=== PATIENT | female | born 1990 | race Hispanic/Latino ===

== ENCOUNTER 2018-07-14 20:33 | Emergency (ER) | payer BC ==
[2018-07-14 20:33] VITALS: BMI 23.1
[2018-07-14 20:44] VITALS: RESP 18
[2018-07-14] MEDS ORDERED: Sodium Chloride 0.9% 1,000 ML IV STA (21:10)
[2018-07-14 21:31] LABS: PH,URINE 6.5 (4.7-8.0); URINE BILIRUBIN NEGATIVE (NEGATIVE); URINE BLOOD SMALL (NEGATIVE); URINE GLUCOSE (UA) 100 mg/dL (NEGATIVE); URINE LEUKOCYTE ESTERASE TRACE Leu/uL (NEGATIVE); URINE PROTEIN NEGATIVE mg/dL (<30 mg/dL); URINE UROBILINOGEN 0.2 E.U./dL (<1 E.U./dL)
[2018-07-14 21:32] LABS: URINE APPEARANCE CLEAR (CLEAR); URINE COLOR YELLOW (YELLOW)
[2018-07-14 21:41] LABS: URINE AMORPHOUS SEDIMENT SMALL /hpf; URINE BACTERIA TRACE /hpf; URINE RBC 15 - 20 /hpf (0-2)
[2018-07-14] MEDS ORDERED: cefTRIAXone 1 gm 1 GM/100 ML BAG IVPB STA (21:42)
--- NOTE | 2018-07-14 22:25 | ED PDOC ---
Arrival/HPI - General Chief Complaint: Abdominal Pain Time Seen by Provider: 07/14/18 20:45 Historian: Patient - History of Present Illness Narrative History of Present Illness (Text): 07/14/18 21:54 27 yo F complains of abdominal pain described, associated with nausea, vomiting x1, diarrhea x1, and urinary urgency since this morning. States that she ate at a restaurant yesterday and had an alcoholic drink as well. Otherwise: (-) fever, (-) chills, (-) diarrhea, (-) back pain, (-) dysuria, (-) fever, (-) melena, (-) hematochezia. Has no history of prior abdominal surgery. Past Medical History - Infectious Disease Hx of Infectious Diseases: None - Past Medical History Past Medical History: Non-Contributing - Cardiac Hx Cardiac Disorders: No - Pulmonary Hx Respiratory Disorders: No - Neurological Hx Neurological Disorder: No - HEENT Hx HEENT Disorder: No - Renal Hx Renal Disorder: No - Hematological/Oncological Other/Comment: Sjogren's disease - Integumentary Hx Dermatological Disorder: No - Musculoskeletal/Rheumatological Hx Musculoskeletal Disorders: No - Gastrointestinal Hx Gastrointestinal Disorders: No - Genitourinary/Gynecological Hx Genitourinary Disorders: No - Psychiatric Hx Depression: No Hx Emotional Abuse: No Hx Physical Abuse: No Hx Substance Use: No - Past Surgical History Past Surgical History: No Previous - Anesthesia Hx Anesthesia: No - Suicidal Assessment Feels Threatened In Home Enviroment: No Family/Social History Family/Social History: No Known Family HX Smoking Status: Never Smoked Hx Alcohol Use: Yes Frequency of alcohol use: Socially Hx Substance Use: No Hx Substance Use Treatment: No Allergies/Home Meds Allergies/Adverse Reactions: Allergies No Known Allergies Allergy (Verified 04/11/15 01:01) Home Medications: Home Meds Medication Instructions Recorded Confirmed Hydroxychloroquine Sulfate 200 mg PO DAILY 02/24/12 07/14/18 [Plaquenil] Norethindrone-E.estradiol-Iron [Lo 1 tab PO DAILY 11/17/12 07/14/18 Loestrin Fe 10 Mcg-75 mg-1 mg] Review of Systems - Review of Systems Constitutional: absent: Fatigue, Fevers Respiratory: absent: SOB, Cough Cardiovascular: absent: Chest Pain, Palpitations Gastrointestinal: Abdominal Pain, Diarrhea, Nausea, Vomiting Genitourinary Female: Frequency. absent: Dysuria, Hematuria Musculoskeletal: absent: Arthralgias, Back Pain, Neck Pain Skin: absent: Rash, Pruritis, Skin Lesions Physical Exam Vital Signs Temp Pulse Resp BP Pulse Ox 07/14/18 20:43 98.1 F 111 H 18 127/83 96 Temperature: Afebrile Blood Pressure: Normal Pulse: Tachycardic Respiratory Rate: Normal Appearance: Positive for: Well-Appearing, Non-Toxic, Comfortable Pain Distress: None Mental Status: Positive for: Alert and Oriented X 3 - Systems Exam Head: Present: Atraumatic, Normocephalic Pupils: Present: PERRL Extroacular Muscles: Present: EOMI Conjunctiva: Present: Normal Mouth: Present: Dry Neck: Present: Normal Range of Motion Respiratory/Chest: Present: Clear to Auscultation, Good Air Exchange. No: Respiratory Distress, Accessory Muscle Use Cardiovascular: Present: Regular Rate and Rhythm, Normal S1, S2. No: Murmurs Abdomen: No: Tenderness, Distention, Peritoneal Signs Back: Present: Normal Inspection Upper Extremity: Present: Normal Inspection. No: Cyanosis, Edema Lower Extremity: Present: Normal Inspection. No: Edema Neurological: Present: GCS=15, CN II-XII Intact, Speech Normal Skin: Present: Warm, Dry, Normal Color. No: Rashes Psychiatric: Present: Alert, Oriented x 3, Normal Insight, Normal Concentration Medical Decision Making ED Course and Treatment: 07/14/18 23:36 Plan: -- Labs -- IV fluids -- Urinalysis -- Pepcid / Zofran -- Reassess and disposition labs reviewed, rocephin 1 g IV ordered to treat UTI. On reevaluation, patient reports improvement of symptoms, denies any abdominal pain or nausea. On exam, patient remains awake alert and oriented 3 in no acute distress. Patient able to tolerate po fluids. Diagnostic results and diagnosis discussed with the patient. Patient states that she was treated for a UTI 5 weeks ago at [facility] and took and completed macrobid. She has documents from her visit at [facility] showing her urine cx + E coli sensitive to bactrim and macrobid. Advised to follow up with primary care physician in 1-2 days without fail. Advised to take medication as prescribed. Return to the emergency room at any time for any new or worsening symptoms. Patient states she fully agrees with and understands discharge instructions. States that she agrees with the plan and disposition. Verbalized and repeated discharge instructions and plan. I have given the patient opportunity to ask any additional questions. - Lab Interpretations Lab Results: Urine Color Yellow (YELLOW) 07/14/18 21: Urine Appearance Clear (CLEAR) 07/14/18 21: Urine pH 6.5 (4.7-8.0) 07/14/18 21: Ur Specific [place] 1.015 (1.005-1.035) 07/14/18 21: Urine Protein Negative mg/dL (<30 mg/dL) 07/14/18 21: Urine Glucose (UA) 100 mg/dL (NEGATIVE) H 07/14/18 21: Urine Ketones Negative mg/dL (NEGATIVE) 07/14/18 21: Urine Blood Small (NEGATIVE) H 07/14/18 21: Urine Nitrate Positive (NEGATIVE) H 07/14/18 21: Urine Bilirubin Negative (NEGATIVE) 07/14/18 21: Urine Urobilinogen 0.2 E.U./dL (<1 E.U./dL) 07/14/18 21:19 Ur Leukocyte Esterase Trace Bella/uL (NEGATIVE) H 07/14/18 21:19 Urine RBC 15 - 20 /hpf (0-2) H 07/14/18 21:19 Urine WBC 10 - 15 /hpf (0-6) H 07/14/18 21:19 Ur Epithelial Cells 6 - 8 /hpf (0-5) H 07/14/18 21:19 Amorphous Sediment Small /hpf (NONE) 07/14/18 21: Urine Bacteria Trace /hpf (NONE) 07/14/18 21:19 - Medication Orders Current Medication Orders: Sodium Chloride (Sodium Chloride 0.9%) 1,000 mls @ 1,000 mls/hr IV .Q1H STA Stop: 07/14/18 22:09 Ceftriaxone Sodium (Rocephin 1 Gram Ivpb) 1 gm in 100 mls @ 200 mls/hr IVPB STAT STA; Protocol Stop: 07/14/18 22:11 Discontinued Medications Famotidine (Pepcid) 20 mg IVP STAT STA Stop: 07/14/18 21:11 Ondansetron HCl (Zofran Inj) 4 mg IVP STAT STA Stop: 07/14/18 21:11 - PA / PRACTICE LEAD / Resident Statement / has reviewed & agrees with the documentation as recorded. Disposition/Present on Arrival - Present on Arrival Any Indicators Present on Arrival: No History of DVT/PE: No History of Uncontrolled Diabetes: No Urinary Catheter: No History of Decub. Ulcer: No History Surgical Site Infection Following: None - Disposition Have Diagnosis and Disposition been Completed?: Yes Diagnosis: Abdominal pain, UTI (urinary tract infection), Nausea & vomiting Disposition: HOME/ ROUTINE Disposition Time: 23:30 Patient Plan: Discharge Condition: STABLE Discharge Instructions (ExitCare): Urinary Tract Infections in Adults, Acute Abdomen (Belly Pain), Nausea and Vomiting, Adult Additional Instructions: Thank you for letting us take care of you today. You were treated for abdominal pain, vomiting, UTI. The emergency medical care you received today was directed at your acute symptoms. If you were prescribed any medication, please fill it and take as directed. It may take several days for your symptoms to resolve. Return to the Emergency Department if your symptoms worsen, do not improve, or if you have any other problems. Please contact your doctor in 2 days for re-evaluation and follow up. Bring any paperwork you were given at discharge with you along with any medications you are taking to your follow up visit. Our treatment cannot replace ongoing medical care by a primary care provider (PCP) outside of the emergency department. Thank you for allowing the [facility] team to be part of your care today. If you had a urine culture: It will take several days for the results, if any change in treatment is needed we will contact you. Prescriptions: Ondansetron ODT [Zofran ODT] 4 mg PO DAILY PRN #20 odt PRN Reason: Nausea/Vomiting Sulfamethoxazole/Trimethoprim [Bactrim DS 800 mg-160 mg] 1 tab PO BID #14 tab Referrals: Amita Gustafson DO [Primary Care Provider] - Follow up with primary Forms: [employer] (Spanish), WORK NOTE
[2018-07-14 22:49] VITALS: BP 118/77
[2018-07-14 22:59] LABS: EOS % 0.7 % (1.5-5.0); GRAN # 4.1 (1.4-6.5); GRAN % 74.7 % (50.0-68.0); HEMOGLOBIN 14.2 g/dL (12.0-16.0); LYMPH # 1.1 (1.2-3.4); LYMPH % 19.7 % (22.0-35.0); MEAN CELL VOLUME 85.9 fl (80.0-105.0); MEAN CORPUSCULAR HGB CONC 34.9 g/dl (31.0-37.0); MEAN PLATELET VOLUME 10.8 fl (7.0-11.0); MONO # 0.3 (0.1-0.6); MONO % 4.9 % (1.0-6.0); RBC 4.74 10^6/uL (3.5-6.1); WHITE BLOOD COUNT 5.5 10^3/uL (4.5-11.0)
[2018-07-14 23:00] LABS: ALB/GLOB RATIO 1.1 (1.1-1.8); ALBUMIN 4.6 g/dL (3.0-4.8); ALT/SGPT 29 U/L (7-56); AST/SGOT 37 U/L (14-36); BLOOD UREA NITROGEN 10 mg/dL (7-21); GFR NON-AFRICAN AMERICAN > 60; LIPASE 116 U/L (23-300)
[2018-07-14 23:33] VITALS: PULSE 91; O2SAT 99
[2018-07-14 23:37] VITALS: TEMP 98.7
== END 2018-07-15 00:08 | disposition home or self-care (01) ==
LOC: ED 20:33
DX: N39.0 Urinary tract infection, site not specified (principal); R10.9 Unspecified abdominal pain; R11.2 Nausea with vomiting, unspecified
CPT/HCPCS: 80053; 81001; 81025; 83690; 83735; 85025; 87086; 96365; 96375; 99284; J0696; J2405; J7030

== ENCOUNTER 2018-07-16 08:08 | Outpatient (CLI) | payer BC | END 2018-07-16 08:09 | disposition home or self-care (01) | LOC: RAD 08:09 ==